=== PATIENT | male | born 1980 | race African-American/Black ===

== ENCOUNTER 2016-04-19 15:27 | Emergency (ER) | payer BC, OTHER ==
[2016-04-19 15:21] LABS: URINE SOURCE CLEAN CATCH
[2016-04-19 15:25] LABS: URINE APPEARANCE HAZY; URINE BILIRUBIN NEG (NEG); URINE BLOOD 2+ (NEG); URINE COLOR YELLOW; URINE GLUCOSE NEG (NORM); URINE KETONE NEG (NEG); URINE LEUKOCYTE ESTERASE 3+ (NEG); URINE NITRATE NEG (NEG); URINE PROTEIN NEG (NEG); URINE SPECIFIC GRAVITY <=1.005 (1.003-1.035)
[2016-04-19 15:26] LABS: MICRO INDICATED? YES
[~2016-04-19 15:27] MED LIST: FLEXERIL10 MG PO; IBUPROFEN800 MG PO; NO MEDICATIONS; PHENTERMINE; VOLTAREN75 MG PO
[2016-04-19 15:32] LABS: CULTURE INDICATED? YES; URINE BACTERIA NEG (NEG); URINE SQUAMOUS EPITHELIAL CELL OCCAS /[HPF]; URINE WBC 200-300 /[HPF] (0-5)
[2016-04-23 16:21] LABS: CHLAMYDIA TRACH Not Detected (Not Detected); N GONOR Detected (Not Detected)
== END 2016-04-19 16:05 | disposition home or self-care (01) ==
LOC: SED 15:27
PROVIDERS: Nurse Practitioner
DX: N34.2 Other urethritis (principal); F17.210 Nicotine dependence, cigarettes, uncomplicated
CPT/HCPCS: 81003; 87086; 87491; 87591; 96372; 99283; J0696